=== PATIENT | female | born 1950 | race Caucasian/White ===

== ENCOUNTER → 2016-08-01 | Outpatient (CLI) | payer MEDICARE ==
[2016-08-01 18:25] LABS: ALT 44 U/L (9-52); AST 25 U/L (14-36); Alkaline Phosphatase 69 U/L (38-126); Anion Gap 13 mmol/L; Blood Urea Nitrogen 18 mg/dL (7-17); Calcium 10.2 mg/dL (8.4-10.2); Carbon Dioxide 25 mmol/L (22-30); Chloride 105 mmol/L (98-107); Glucose 115 mg/dL (74-99); Non-African American GFR(MDRD) >60 (>60 ml/min/1.73 sqM); Potassium 4.6 mmol/L (3.5-5.1); Sodium 143 mmol/L (137-145); Total Bilirubin 0.4 mg/dL (0.2-1.3); Total Protein 7.7 g/dL (6.3-8.2)
== END | disposition home or self-care (01) ==
LOC: MMGSC 16:34
PROVIDERS: ATTEND Family Medicine
DX: E11.9 Type 2 diabetes mellitus without complications (principal)
CPT/HCPCS: 36415; 80053; 82043; 83036

== ENCOUNTER → 2016-10-31 | Outpatient (CLI) | payer MEDICARE ==
[2016-10-31 21:51] LABS: Hemoglobin A1C 7.1 % (4.2-6.1)
== END | disposition home or self-care (01) ==
LOC: MMGSC 16:28
PROVIDERS: ATTEND Family Medicine
DX: E11.9 Type 2 diabetes mellitus without complications (principal)
CPT/HCPCS: 36415; 83036

== ENCOUNTER → 2017-05-01 | Outpatient (CLI) | payer MEDICARE ==
[2017-05-01 21:02] LABS: ALT 45 U/L (9-52); AST 25 U/L (14-36); Alkaline Phosphatase 64 U/L (38-126); Anion Gap 8 mmol/L; Blood Urea Nitrogen 21 mg/dL (7-17); Calcium 10.2 mg/dL (8.4-10.2); Carbon Dioxide 27 mmol/L (22-30); Chloride 106 mmol/L (98-107); Cholesterol 130 mg/dL (<200); Glucose 172 mg/dL (74-99); HDL Cholesterol 46 mg/dL (40-60); Non-African American GFR(MDRD) >60 (>60 ml/min/1.73 sqM); Potassium 4.2 mmol/L (3.5-5.1); Sodium 141 mmol/L (137-145); Total Bilirubin 0.3 mg/dL (0.2-1.3); Total Protein 7.6 g/dL (6.3-8.2)
== END | disposition home or self-care (01) ==
LOC: MMGSC 16:48
PROVIDERS: ATTEND Family Medicine
DX: E11.9 Type 2 diabetes mellitus without complications (principal); E04.2 Nontoxic multinodular goiter
CPT/HCPCS: 36415; 80053; 80061; 83036; 84439; 84443

== ENCOUNTER → 2017-05-12 | Outpatient (CLI) | payer MEDICARE ==
--- NOTE | 2017-05-12 16:47 | US ---
EXAMINATION TYPE: US thyroid st tissue head/neck DATE OF EXAM: 05/12/2017 COMPARISON: CT CLINICAL HISTORY: E04.1 Thyroid nodule. Nodule seen on CT GLAND SIZE: Right Lobe: 4.1 x 1.7 x 2.0 cm Overall Parenchyma: heterogenous Left Lobe: 4.4 x 2.0 x 2.0 cm Overall Parenchyma: heterogeneous Isthmus Thickness: 0.6 cm NODULES RIGHT: # of nodules measured on right: 0 LEFT: # of nodules measured on left: 1 1. 2.7 X 1.1 x 1.6 cm hypoechoic solid nodule at the mid pole with poorly defined margins;This nodu le is wider than tall and shows intranodular vascularity. Prior size: Seen on CT ISTHMUS: Small, subcentimeter nodules right isthmus Bilateral neck scanned, no evidence of lymphadenopathy. Nodule on left, small sub-centimeter nodules seen within isthmus IMPRESSION: There is a complex oval-shaped nodule in the left thyroid lobe. I have a low suspicion of malignancy . I think this could be followed conservatively with repeat ultrasound in 6 months if the physical ex am does not change.
== END | disposition home or self-care (01) ==
LOC: RADUSWWP 16:09
PROVIDERS: ATTEND Family Medicine
DX: E04.1 Nontoxic single thyroid nodule (principal)
CPT/HCPCS: 76536

== ENCOUNTER → 2018-03-31 | Outpatient (CLI) | payer MEDICARE ==
--- NOTE | 2018-04-01 08:20 | US ---
EXAMINATION TYPE: US thyroid st tissue head/neck DATE OF EXAM: 03/31/2018 COMPARISON: US dated 05/12/2017. CLINICAL HISTORY: E04.1 Thyroid Nodule. GLAND SIZE: Right Lobe: 5.0 x 1.8 x 1.7 cm Overall Parenchyma: homogenous Left Lobe: 4.5 x 1.9 x 2.4 cm Overall Parenchyma: heterogeneous Isthmus Thickness: 0.7 cm NODULES RIGHT: # of nodules measured on right: 1 1. 0.5 X 0.4 x 0.4 cm hypoechoic mixed nodule at the upper pole with well-defined margins. This no dule is wide as is tall and shows no intranodular vascularity. Prior size: not present LEFT: # of nodules measured on left: 2 largest of multiple 1. 2.7 X 1.2 x 1.9 cm hypoechoic mixed nodule at the mid pole with poorly defined margins. This no dule is taller than wide and shows intranodular vascularity. Prior size: 2.7 x 1.1 x 1.9 cm 2. 0.7 X 0.5 x 0.6 cm hypoechoic complex cystic nodule at the pole with well-defined margins. This nodule is taller than wide and shows no intranodular vascularity. not previously seen ISTHMUS: # of nodules measured in the isthmus: 1 1. 0.6 X 0.4 x 0.3 cm hypoechoic cystic nodule at the lower right pole with well-defined margins. This nodule is wider than tall and shows no intranodular vascularity. Prior size: 0.4cm Bilateral neck scanned: no evidence of lymphadenopathy. IMPRESSION: Stable size of the mixed echogenicity 2.7 cm left thyroid nodule in comparison to the prior exam of 07/12/2016. Multiple other subcentimeter thyroid nodules are seen most compatible with a thyroid goite r. Continued surveillance could be performed.
== END | disposition home or self-care (01) ==
LOC: RADUSWWP 16:54
PROVIDERS: ATTEND Family Medicine
DX: E04.2 Nontoxic multinodular goiter (principal)
CPT/HCPCS: 76536